=== PATIENT | male | born 1985 | race Caucasian/White ===

== ENCOUNTER 2019-11-02 13:05 | Emergency (ER) | payer MEDICAID ==
[~2019-11-02] VITALS: Ht 175.3 cm; Wt 90.7 kg
[2019-11-02 13:12] VITALS: Ht 175.3 cm; Wt 90.7 kg
[2019-11-02 15:51] VITALS: BP 143/89
== END 2019-11-02 15:51 | disposition home or self-care (01) ==
LOC: ED 13:05
DX: M54.5 Low back pain (principal)
CPT/HCPCS: 20552; J1885